=== PATIENT | female | born 1965 | race Caucasian/White ===

== ENCOUNTER 2017-02-19 22:03 | Emergency (ER) | payer OTHER ==
[~2017-02-19] VITALS: Ht 149.9 cm; Wt 67.6 kg
[2017-02-19 23:11] VITALS: Ht 149.9 cm; Wt 67.6 kg
[2017-02-20 03:40] VITALS: BP 110/68
== END 2017-02-20 03:40 | disposition home or self-care (01) ==
LOC: ED 22:03
DX: K52.9 Noninfective gastroenteritis and colitis, unspecified (principal); R50.9 Fever, unspecified; E11.9 Type 2 diabetes mellitus without complications
CPT/HCPCS: 82962; Q0162